=== PATIENT | female | born 1960 | race Caucasian/White ===

== ENCOUNTER 2017-12-26 16:38 | Emergency (ER) | payer BC, OTHER ==
[~2017-12-26] VITALS: Ht 160 cm; Wt 115.7 kg
[~2017-12-26 16:38] MED LIST: ALBU6.7H IH; ESTR1.25 PO; FLUO40CA2; LISI-334 PO; ONDA4TAB7 PO
[2017-12-26 17:00] VITALS: BP 142/60
--- NOTE | 2017-12-26 17:03 | PHYS DOC ---
Past History Past Medical History: COPD, Depression, Hypertension Past Surgical History: Hysterectomy, Knee Replacement Smoking: Cigarettes Alcohol Use: None Drug Use: None Adult General Chief Complaint Chief Complaint: HAND PROBLEM HPI HPI Patient is a 57-year-old female presents to the emergency department for evaluation. She accidentally bumped her tablet computer on the dorsal aspect of her right hand, where she has developed a hematoma under the skin about quarter dollar size, overlying the base of her second metacarpal bone. The area is tender to palpation, but she is able to fully flex and extend the digits. She denies any pulmonary injuries or wounds. She denies any other injuries. She does not take any anticoagulants. She states the swelling has worsened after the initial injury. Palpation worsens her pain. There are no alleviating factors to her symptoms. She denies other problems with easy bleeding or bruising. Review of Systems Review of Systems Constitutional: Denies fever or chills [] Respiratory: Denies cough or shortness of breath [] Cardiovascular: No additional information not addressed in HPI [] Musculoskeletal: Denies back pain or joint pain [] Integument: Denies rash or skin lesions [] Neurologic: Denies headache, focal weakness or sensory changes [] Current Medications Current Medications Current Medications Medications (Trade) Dose Ordered Sig/Amanda Start Time Stop Time Status Last Admin Dose Admin Acetaminophen (Tylenol) 1,000 mg 1X ONCE 12/26/17 17:00 12/26/17 17:01 UNV Allergies Allergies Allergies Coded Allergies Type Severity Reaction Last Updated Verified codeine Allergy Unknown 06/09/14 No Physical Exam Physical Exam PHYSICAL EXAM: CONSTITUTIONAL: Well developed, well nourished HEAD: normocephalic, atraumatic EENT: PERRL, EOMI. disconjugate gaze is noted. LUNGS: Lungs CTA, breathing even and unlabored. Normal air movement. HEART: Regular rate and rhythm, no murmur EXTREM: Normal ROM; no deformity, no calf tenderness. Normal pulses palpable in all extremities. There is no pedal edema. There is a quarter dollar size hematoma on the dorsal aspect of the right hand at the base of the second metacarpal. There is no warmth or erythema, no gross crepitus or bony injury is noted on exam. The remainder of the extremities are atraumatic. Distal PMS are intact. Digits are atraumatic. SKIN: No rash; no diaphoresis NEURO: Alert; normal speech and cognition; CN's grossly intact; strength grossly intact without focal deficit. BACK: No CVA TTP. Current Patient Data Vital Signs Vital Signs Date Time Temp Pulse Resp B/P (MAP) Pulse Ox O2 Delivery O2 Flow Rate FiO2 12/26/17 16:51 98.0 80 22 100 Room Air EKG EKG [] Radiology/Procedures Radiology/Procedures [ER Physician preliminary handouts interpretation: Arthritic changes without acute fracture.] Course & Med Decision Making Course & Med Decision Making Pertinent Imaging studies reviewed. (See chart for details) [5:30 PM:Patient remains stable. I discussed test results, the need for close follow-up, and return precautions.] Dragon Disclaimer Dragon Disclaimer This electronic medical record was generated, in whole or in part, using a voice recognition dictation system. Departure Departure: Impression: Primary Impression: Hand contusion Disposition: HOME, SELF-CARE Condition: STABLE Referrals: ARNALDO CALLE DO (PCP) Patient Instructions: Hand Contusion CHELSEA OSMAN MD Dec 26, 2017 17:03
[2017-12-26] MEDS ORDERED: ACETAMINOPHEN 500 MG TABLET PO ONE (17:20)
--- NOTE | 2017-12-26 17:20 | RAD ---
EXAM: Right hand, 3 views. HISTORY: Pain and swelling. COMPARISON: None. FINDINGS: Frontal, lateral and oblique views of the right hand are obtained. There is no fracture, dislocation or subluxation. There is mild first carpometacarpal joint space narrowing with subchondral sclerosis, spurring and subchondral cyst formation. There is a suspected bone island within the distal second proximal phalanx. There is dorsal hand soft tissue swelling. IMPRESSION: 1. Dorsal hand soft tissue swelling. 2. Mild first carpometacarpal osteoarthritis. Electronically signed by: Cinthia Campbell MD (12/26/2017 5:17 PM) [id number]
== END 2017-12-26 17:28 | disposition home or self-care (01) ==
LOC: ER 16:38
DX: S60.221A Contusion of right hand, initial encounter (principal); J44.9 Chronic obstructive pulmonary disease, unspecified; I10 Essential (primary) hypertension; F17.210 Nicotine dependence, cigarettes, uncomplicated; Z88.5 Allergy status to narcotic agent; W22.8XXA Striking against or struck by other objects, initial encounter; Y93.89 Activity, other specified; Y99.8 Other external cause status; Y92.89 Other specified places as the place of occurrence of the external cause
CPT/HCPCS: 73130; 99284